=== PATIENT | male | born 1960 | race African-American/Black ===

== ENCOUNTER → 2023-01-08 | Emergency (ER) | payer BC ==
[~2023-01-08] VITALS: Ht 195.6 cm; Wt 129.3 kg
[~2023-01-08] MED LIST: ACET1TAB23 PO
--- NOTE | 2023-01-08 16:55 | NUR ---
at bedside exam in progress.
--- NOTE | 2023-01-08 18:03 | NUR ---
DCD instructions and prescriptions given to pt. who verbalized understanding and left room ambulatory with steady gait. No c/of pain
== END | disposition home or self-care (01) ==
LOC: ER 16:41
DX: S09.90XA Unspecified injury of head, initial encounter (principal); M25.561 Pain in right knee; M25.511 Pain in right shoulder; Z79.899 Other long term (current) drug therapy; V43.52XA Car driver injured in collision with other type car in traffic accident, initial encounter; Y93.89 Activity, other specified; Y92.410 Unspecified street and highway as the place of occurrence of the external cause; Y99.8 Other external cause status
CPT/HCPCS: 73030; A4663